=== PATIENT | female | born 1970 | race American Indian/Alaskan Native ===

== ENCOUNTER 2016-10-06 00:58 | Emergency (ER) | payer MEDICARE ==
[2016-10-06 02:03] VITALS: BP 146/85
[2016-10-06 03:20] LABS: Basophils % (Auto) 0.9 % (0.0-1.8); Hematocrit 37.1 % (30.3-42.9); Hemoglobin 12.5 gm/dl (10.1-14.3); Mean Corpuscular HGB Conc 34 % (30-34); Mean Corpuscular Hemoglobin 31 pg (28-32); Mean Corpuscular Volume 92 fl (79-97); Platelet Count 368 K/mm3 (140-440); Red Blood Count 4.01 M/mm3 (3.65-5.03); White Blood Count 8.5 K/mm3 (4.5-11.0)
[2016-10-06 03:27] LABS: INR 0.9 (0.87-1.13)
[2016-10-06 03:28] LABS: Partial Thromboplastin Time 25.1 Sec. (24.2-36.6)
[2016-10-06 03:41] LABS: Alanine Aminotransferase 15 units/L (7-56); Albumin/Globulin Ratio 1.2 %; Alkaline Phosphatase 60 units/L (35-129); Anion Gap 25 mmol/L; BUN/Creatinine Ratio 22.85; Bilirubin,Total 0.2 mg/dL (0.1-1.2); Blood Urea Nitrogen 16 mg/dL (7-17); Calcium 8.4 mg/dL (8.4-10.2); Carbon Dioxide 22 mmol/L (22-30); Chloride 97.8 mmol/L (98-107); Glucose 231 mg/dL (65-100); Sodium 142 mmol/L (137-145); Total Protein 7.3 g/dL (6.3-8.2)
--- NOTE | 2016-10-06 05:10 | Cat Scan Report ---
FINAL REPORT PROCEDURE: CT HEAD/BRAIN WO CON TECHNIQUE: Computerized tomography of the head was performed without contrast material. HISTORY: fall hit head COMPARISON: 04/24/2014 FINDINGS: Skull and scalp: Normal. Paranasal sinuses: Normal. Ventricles and subarachnoid spaces: Normal. Cerebrum: No evidence of hemorrhage, acute infarction or mass . Cerebellum and brainstem: No evidence of hemorrhage, acute infarction or mass. Vasculature: Normal. Comments: None. IMPRESSION: There is no evidence of an acute intracranial process.
--- NOTE | 2016-10-06 07:28 | XRay Report ---
RIGHT FOREARM: History: Pain, foreign body. AP and lateral views of the forearm demonstrate normal mineralization and contours for this patient's age. No destructive changes are noted and the adjacent soft tissues are normal. IMPRESSION: Unremarkable right forearm.
--- NOTE | 2016-10-06 07:28 | XRay Report ---
RIGHT HAND, 3 views: History: Numbness, foreign body The bony architecture is intact. Bony alignment is normal. No soft tissue abnormalities are seen. The joint spaces appear preserved. IMPRESSION: Unremarkable right hand.
--- NOTE | 2016-10-06 07:42 | Emergency Department Report ---
ED Fall HPI - General Chief Complaint: Wound/Laceration Stated Complaint: RT ARM LAC/FALL Time Seen by Provider: 10/06/16 07:37 Source: patient Mode of arrival: Ambulatory - History of Present Illness Initial Comments: 46-year-old female past medical history carpal tunnel syndrome presents with complaint of lacerations to right forearm status post mechanical fall onto glass coffee table last night at approximately 11 PM. Patient states her dog regularly ran in front of her C tripped forward onto an outstretched forearm on some glass coffee table glass cracked she may have hit her head on the tip of table no loss of consciousness was able to stand up immediately states that she saw bleeding in her forearm which is why she came to hospital. On my exam patient is awake alert and oriented 3 not in acute distress reports no nausea or vomiting since incident can follow simple commands and complex commands is fully ambulatory without assistance primarily complaining of pain in her right forearm area denies any alcohol or drug use. As any upper or lower extremity paresthesias denies any neck or back pain did not hit her neck or her back during fall. MD Complaint: fall Onset/Timin -: hour(s) Fall From: standing Fall Witnessed: no Place Fall Occurred: home Loss of Consciousness: none Prolonged Down Time?: no Symptoms Prior to Fall: none Location: head Location - Extremities: Right: Forearm (2 visible lacerations right midforearm about one-inch each) Severity: moderate Severity scale (0 -10): 6 Quality: sharp Context: tripped/slipped Associated Symptoms: denies - Related Data Home Medications Medication Instructions Recorded Confirmed Last Taken Atorvastatin Calcium [Lipitor] 20 mg PO QHS 04/23/14 04/23/14 Unknown Butalbit/Acetamin/Caff/Codeine 1 each PO Q4H 04/23/14 04/23/14 Unknown [Fioricet/Codeine 89-686-46-30] Cyclobenzaprine [Flexeril 10 MG 10 mg PO BID PRN 04/23/14 04/23/14 Unknown TAB] Duloxetine HCl [Cymbalta] 60 mg PO DAILY 04/23/14 04/23/14 Unknown Ferrous Sulfate [Feosol 325 MG tab] 325 mg PO BID 04/23/14 04/23/14 Unknown Gabapentin [Neurontin] 800 mg PO QID 04/23/14 04/23/14 Unknown Losartan [Cozaar] 100 mg PO QDAY 04/23/14 04/23/14 Unknown Meloxicam 15 mg PO QDAY 04/23/14 04/23/14 Unknown Metolazone [Zaroxolyn] 5 mg PO QDAY 04/23/14 04/23/14 Unknown Oxycodone HCl/Acetaminophen 1 each PO Q6H PRN 04/23/14 04/23/14 Unknown [OxyCODONE-Acetaminophen 7.5-325] Potassium Chloride [K-Dur] 10 meq PO QDAY 04/23/14 04/23/14 Unknown Ranitidine HCl [Zantac] 300 mg PO QDAY 04/23/14 04/23/14 Unknown Tizanidine HCl [Zanaflex] 4 mg PO TID PRN 04/23/14 04/23/14 Unknown Topiramate [Topamax TAB] 25 mg PO BID 04/23/14 04/23/14 Unknown cloNIDine [Catapres] 0.2 mg PO BID 04/23/14 04/23/14 Unknown diphenhydrAMINE [Benadryl CAP] 25 mg PO Q8HR PRN 04/23/14 04/23/14 Unknown metFORMIN [Glucophage] 1,000 mg PO BID 04/23/14 04/23/14 Unknown Previous Rx's Medication Instructions Recorded Last Taken Type Magnesium Oxide [Mag-Ox] 400 mg PO BID #10 tablet 07/06/14 Unknown Rx amLODIPine [Norvasc] 5 mg PO DAILY #30 tab 07/06/14 Unknown Rx Acetaminophen/Codeine [Tylenol #3] 1 tab PO Q6H PRN #8 tab 10/06/16 Unknown Rx Cephalexin [Keflex] 500 mg PO BID #14 capsule 10/06/16 Unknown Rx Ibuprofen [Motrin] 600 mg PO Q8H PRN #25 tablet 10/06/16 Unknown Rx Magnesium Oxide [Mag-Ox] 400 mg PO QDAY #30 tablet 10/06/16 Unknown Rx Neomycn/Baci Zn/Pmyx Bs/Pramox 28 gm TP BID #1 oint...g. 10/06/16 Unknown Rx [Triple Antibioti-Pain Rlf Oint] Potassium Chloride [K-Dur] 20 meq PO BID #60 tab 10/06/16 Unknown Rx Allergies Allergy/AdvReac Type Severity Reaction Status Date / Time No Known Allergies Allergy Verified 10/06/16 01:59 ED Review of Systems ROS: Stated complaint: RT ARM LAC/FALL Other details as noted in HPI Constitutional: denies: chills, fever Eyes: denies: eye pain, eye discharge, vision change ENT: denies: ear pain, throat pain Respiratory: denies: cough, shortness of breath, wheezing Cardiovascular: denies: chest pain, palpitations Endocrine: no symptoms reported Gastrointestinal: denies: abdominal pain, nausea, diarrhea Genitourinary: denies: urgency, dysuria, discharge Musculoskeletal: denies: back pain, joint swelling, arthralgia Skin: denies: rash, lesions Neurological: denies: headache, weakness, paresthesias Psychiatric: denies: anxiety, depression Hematological/Lymphatic: denies: easy bleeding, easy bruising ED Past Medical Hx - Past Medical History Previous Medical History?: Yes Hx Hypertension: Yes Hx Diabetes: Yes Additional medical history: Sciatica. Chronic back/knee pain - Surgical History Past Surgical History?: Yes Hx Cholecystectomy: Yes Hx Breast Surgery: Yes (BREAST REDUCTION) Additional Surgical History: R knee surgery. breast reduction - hysterectomy. carpel tunnel repair R side - Social History Smoking Status: Current Every Day Smoker Substance Use Type: Alcohol - Medications Home Medications: Home Medications Medication Instructions Recorded Confirmed Last Taken Type Atorvastatin Calcium [Lipitor] 20 mg PO QHS 04/23/14 04/23/14 Unknown History Butalbit/Acetamin/Caff/Codeine 1 each PO Q4H 04/23/14 04/23/14 Unknown History [Fioricet/Codeine 88-303-53-30] Cyclobenzaprine [Flexeril 10 MG 10 mg PO BID PRN 04/23/14 04/23/14 Unknown History TAB] Duloxetine HCl [Cymbalta] 60 mg PO DAILY 04/23/14 04/23/14 Unknown History Ferrous Sulfate [Feosol 325 MG tab] 325 mg PO BID 04/23/14 04/23/14 Unknown History Gabapentin [Neurontin] 800 mg PO QID 04/23/14 04/23/14 Unknown History Losartan [Cozaar] 100 mg PO QDAY 04/23/14 04/23/14 Unknown History Meloxicam 15 mg PO QDAY 04/23/14 04/23/14 Unknown History Metolazone [Zaroxolyn] 5 mg PO QDAY 04/23/14 04/23/14 Unknown History Oxycodone HCl/Acetaminophen 1 each PO Q6H PRN 04/23/14 04/23/14 Unknown History [OxyCODONE-Acetaminophen 7.5-325] Potassium Chloride [K-Dur] 10 meq PO QDAY 04/23/14 04/23/14 Unknown History Ranitidine HCl [Zantac] 300 mg PO QDAY 04/23/14 04/23/14 Unknown History Tizanidine HCl [Zanaflex] 4 mg PO TID PRN 04/23/14 04/23/14 Unknown History Topiramate [Topamax TAB] 25 mg PO BID 04/23/14 04/23/14 Unknown History cloNIDine [Catapres] 0.2 mg PO BID 04/23/14 04/23/14 Unknown History diphenhydrAMINE [Benadryl CAP] 25 mg PO Q8HR PRN 04/23/14 04/23/14 Unknown History metFORMIN [Glucophage] 1,000 mg PO BID 04/23/14 04/23/14 Unknown History Magnesium Oxide [Mag-Ox] 400 mg PO BID #10 tablet 07/06/14 Unknown Rx amLODIPine [Norvasc] 5 mg PO DAILY #30 tab 07/06/14 Unknown Rx Acetaminophen/Codeine [Tylenol #3] 1 tab PO Q6H PRN #8 tab 10/06/16 Unknown Rx Cephalexin [Keflex] 500 mg PO BID #14 capsule 10/06/16 Unknown Rx Ibuprofen [Motrin] 600 mg PO Q8H PRN #25 tablet 10/06/16 Unknown Rx Magnesium Oxide [Mag-Ox] 400 mg PO QDAY #30 tablet 10/06/16 Unknown Rx Neomycn/Baci Zn/Pmyx Bs/Pramox 28 gm TP BID #1 oint...g. 10/06/16 Unknown Rx [Triple Antibioti-Pain Rlf Oint] Potassium Chloride [K-Dur] 20 meq PO BID #60 tab 10/06/16 Unknown Rx ED Physical Exam - General Limitations: No Limitations General appearance: alert, in no apparent distress - Head Head exam: Present: atraumatic, normocephalic - Eye Eye exam: Present: normal appearance, PERRL, EOMI - ENT ENT exam: Present: mucous membranes moist - Neck Neck exam: Present: normal inspection, full ROM - Respiratory Respiratory exam: Present: normal lung sounds bilaterally. Absent: respiratory distress - Cardiovascular Cardiovascular Exam: Present: regular rate, normal rhythm. Absent: systolic murmur, diastolic murmur, rubs, gallop - GI/Abdominal GI/Abdominal exam: Present: soft, normal bowel sounds - Extremities Exam Extremities exam: Present: normal inspection - Expanded Upper Extremity Exam Right Shoulder Exam: Present: normal inspection, full ROM Upper Arm exam: Present: normal inspection, full ROM Elbow exam: Present: normal inspection, full ROM Forearm Wrist exam: Present: full ROM (patient supination intact elbow flexion and extension fully intact against resistance no wrist drop wrist flexion and extension lateral flexion fully intact against resistance), tenderness, laceration (2 one-inch lacerations right midforearm) Hand Wrist exam: Present: normal inspection, full ROM, other (is no snuffbox tenderness on exam) Neuro motor exam: Present: wrist extension intact, thumb opposition intact, thumb IP flexion intact, thumb adduction intact, fingers 2-5 abduction intact Neurosensory exam: Present: radial nerve intact, ulnar nerve intact, median nerve intact Vascular: Present: normal capillary refill (normal capillary refill all distal fingers hand range of motion finger range of motion fully intact all digits against resistance flexion and extension, lumbricals intact), radial pulse, brachial pulse, ulnar pulse - Back Exam Back exam: Present: normal inspection - Neurological Exam Neurological exam: Present: alert, oriented X3, CN II-XII intact, normal gait - Expanded Neurological Exam Expanded Patient oriented to: Present: person, place, time Cranial nerves: EOM's Intact: Normal Cerebellar function: Finger to Nose: Normal, Heel to [place]: Normal, [place]: Normal Sensory exam: Upper Extremity Light Touch: Normal, Lower Extremity Light Touch: Normal Motor strength exam: RUE: 5, LUE: 5, RLE: 5, LLE: 5 DTR: bicep (R): 3+, bicep (L): 3+, tricep (R): 3+, tricep (L): 3+ Best Eye Response (Brian): (4) open spontaneously Best Motor Response (Brian): (6) obeys commands Best Verbal Response ([place]): (5) oriented Brian Total: 15 - Psychiatric Psychiatric exam: Present: normal affect, normal mood - Skin Skin exam: Present: warm, dry, intact, normal color. Absent: rash ED Course Vital Signs 10/06/16 01:59 Temperature 98.6 F Pulse Rate 113 H Respiratory 18 Rate Blood Pressure 146/85 O2 Sat by Pulse 99 Oximetry ED Medical Decision Making - Lab Data Result diagrams: 10/06/16 03:03 10/06/16 03:03 - Medical Decision Making A/P: Forearm laceration, mechanical fall, mild hypokalemia 1-at CT head, hand and forearm x-ray within normal limits, patient has normal range of motion right upper extremity all joints, right upper extremity neurovascularly intact no snuffbox tenderness on clinical exam 2-sutures placed in right forearm to be removed in 7-10 days, triple antibiotic ointment, acute wound care, Keflex 500 mg twice a day 7 days as it was a penetrating wound with small glass shards 3-motrin 600 when necessary, short course Tylenol 3 4-tdap updated today 5-advised patient to return to the ED for any severe headache lethargy or persistent nausea or vomiting fevers chills pus drainage or erythema at wound site 6- patient has mild hypokalemia and hypomagnesemia we'll replete orally has no EKG changes no chest pain no generalized weakness no presyncopal symptoms whatsoever and no neurovascular or neurological deficits on clinical exam. Will provide oral repletion w/ PO mag oxide and Kdur. I advised pt to f/u with her PMD and have her electrolytes rechecked within the next week. pt agrees with this plan and assures me that she will follow up 7- pt signed out AGAINST MEDICAL ADVICE before we could repeat her magnesium and recheck her vital signs stated that she was in a kearns to leave the hospital and that her ride was waiting for her. I encouraged her to stay as repeating her electrolytes is an important issue but she stated she needed to leave immediately Critical care attestation.: If time is entered above; I have spent that time in minutes in the direct care of this critically ill patient, excluding procedure time. ED Disposition Clinical Impression: Hypokalemia, Hypomagnesemia Fall Qualifiers: Encounter type: initial encounter Qualified Code(s): W19.XXXA - Unspecified fall, initial encounter Forearm laceration Qualifiers: Encounter type: initial encounter Laterality: right Qualified Code(s): S51.811A - Laceration without foreign body of right forearm, initial encounter Disposition: DISCHARGED TO HOME OR SELFCARE Is pt being admited?: No Does the pt Need Aspirin: No Condition: Stable Instructions: Acute Wound Care (ED), Suture Care (ED), Laceration (ED), Hypokalemia (ED), Diphtheria/Tetanus Vaccine (Injection) Additional Instructions: Patient to have sutures removed in 7-10 days and ER urgent care or primary care office Prescriptions: Acetaminophen/Codeine [Tylenol #3] 1 tab PO Q6H PRN #8 tab PRN Reason: Pain Cephalexin [Keflex] 500 mg PO BID #14 capsule Ibuprofen [Motrin] 600 mg PO Q8H PRN #25 tablet PRN Reason: Pain Magnesium Oxide [Mag-Ox] 400 mg PO QDAY #30 tablet Neomycn/Baci Zn/Pmyx Bs/Pramox [Triple Antibioti-Pain Rlf Oint] 28 gm TP BID #1 oint...g. Potassium Chloride [K-Dur] 20 meq PO BID #60 tab Referrals: RACQUEL WEATHERS MD [Staff Physician] - 3-5 Days Forms: Work/School Release Form(ED) Time of Disposition: 09:08
[2016-10-06] MEDS ORDERED: K-DUR PO ONE (07:46)
[2016-10-06] MEDS ORDERED: ZOFRAN ODT PO ONE (07:48)
[2016-10-06] MEDS ORDERED: NORCO 5/325 PO ONE (07:48)
[2016-10-06] MEDS ORDERED: BOOSTRIX IM ONE (07:48)
[2016-10-06] MEDS ORDERED: TRIPLE ANTIBIOTIC TP ONE (07:56)
[2016-10-06] MEDS ORDERED: XYLOCAINE 1%/ EPI 1:100,000 INFILTRATI NR (08:00)
[2016-10-06 08:11] LABS: Creatine Kinase 190 units/L (30-135)
[2016-10-06] MEDS ORDERED: XYLOCAINE 1% MPF 5 mL ONE (08:26)
[2016-10-06] MEDS ORDERED: MAG-OX PO ONE (09:30)
== END 2016-10-06 09:31 | disposition left against medical advice (07) ==
LOC: ED 00:58
DX: S51.811A Laceration without foreign body of right forearm, initial encounter (principal); E87.6 Hypokalemia; E83.42 Hypomagnesemia; I10 Essential (primary) hypertension; E11.9 Type 2 diabetes mellitus without complications; G89.29 Other chronic pain; F17.200 Nicotine dependence, unspecified, uncomplicated; W19.XXXA Unspecified fall, initial encounter; Y93.89 Activity, other specified; Y99.8 Other external cause status; Y92.009 Unspecified place in unspecified non-institutional (private) residence as the place of occurrence of the external cause
CPT/HCPCS: 36415; 70450; 80053; 82550; 83735; 84484; 85025; 85610; 85730; 90471; 90715; 93005; 93010; A6250; Q0162

== ENCOUNTER 2017-07-13 17:11 | Inpatient (IN) | payer MEDICARE ==
[2017-07-13 18:19] LABS: Bilirubin,Urine NEG (Negative); Blood,Urine SM (Negative); Color,Urine Yellow (Yellow); Nitrite,Urine NEG (Negative); Urobilinogen,Urine < 2.0 mg/dL (<2.0)
[2017-07-13 18:22] LABS: Protein,Urine >500 mg/dL (Negative)
[2017-07-13 18:41] LABS: Basophils # (Auto) 0.1 K/mm3 (0.0-0.1); Basophils % (Auto) 1.1 % (0.0-1.8); Eosinophils # (Auto) 0.2 K/mm3 (0.0-0.4); Hematocrit 41.2 % (30.3-42.9); Hemoglobin 14.3 gm/dl (10.1-14.3); Lymphocytes # (Auto) 2.9 K/mm3 (1.2-5.4); Lymphocytes % (Auto) 44.7 % (13.4-35.0); Mean Corpuscular HGB Conc 35 % (30-34); Mean Corpuscular Hemoglobin 33 pg (28-32); Mean Corpuscular Volume 94 fl (79-97); Monocytes # (Auto) 0.5 K/mm3 (0.0-0.8); Monocytes % (Auto) 8.3 % (0.0-7.3); Platelet Count 371 K/mm3 (140-440); Red Blood Count 4.38 M/mm3 (3.65-5.03); Red Cell Distribution Width 15.6 % (13.2-15.2)
[2017-07-13 18:49] LABS: Alanine Aminotransferase 17 units/L (7-56); Albumin 4.1 g/dL (3.9-5); BUN/Creatinine Ratio 18; Blood Urea Nitrogen 14 mg/dL (7-17); Hemolysis Index 10
[2017-07-13] MEDS ORDERED: CATAPRES PO ONE (19:51)
--- NOTE | 2017-07-13 21:09 | Emergency Department Report ---
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 THE PAIN WAS INTERMITTENT BUT NOW FOR ONE WEEK HAS BECOME CONSTANT. PAIN BEGINS IN HER LEFT CALF AND GOES UP TO THE LEFT POSTERIOR THIGH AND THEN TO THE LEFT LOWER QUADRANT. IT IS NOT ASSOCIATED WITH N/V/F BUT EITH CHILLS. SHE HAS A H/O RIGHT ANKLE DVT AFTER RIGHT KNEEE SURGERY. PAST MEDICAL ISSUE INCLUDES DVT,HTN,DM TYPE II, AN DRIGHT KNEE SURGERY CURRENT HR IS 127 AND SAT 95%. HER DR IS DR CHINYERE BARGER MD Complaint: extremity pain -: month(s) (2) Location: left, lower extremity History of Same: No -: Yes arthralgia Severity scale (0 -10): 10 Quality: stabbing, aching Consistency: constant Improves with: nothing Worsens with: weight bearing, walking Associated Symptoms: denies other symptoms - Related Data Home Medications Medication Instructions Recorded Confirmed Last Taken Atorvastatin Calcium [Lipitor] 20 mg PO QHS 04/23/14 04/23/14 Unknown Butalbit/Acetamin/Caff/Codeine 1 each PO Q4H 04/23/14 04/23/14 Unknown [Fioricet/Codeine 94-392-07-30] Cyclobenzaprine [Flexeril 10 MG 10 mg PO BID PRN 04/23/14 04/23/14 Unknown TAB] Duloxetine HCl [Cymbalta] 60 mg PO DAILY 04/23/14 04/23/14 Unknown Ferrous Sulfate [Feosol 325 MG tab] 325 mg PO BID 04/23/14 04/23/14 Unknown Gabapentin [Neurontin] 800 mg PO QID 04/23/14 04/23/14 Unknown Losartan [Cozaar] 100 mg PO QDAY 04/23/14 04/23/14 Unknown Meloxicam 15 mg PO QDAY 04/23/14 04/23/14 Unknown Metolazone [Zaroxolyn] 5 mg PO QDAY 04/23/14 04/23/14 Unknown Oxycodone HCl/Acetaminophen 1 each PO Q6H PRN 04/23/14 04/23/14 Unknown [OxyCODONE-Acetaminophen 7.5-325] Potassium Chloride [K-Dur] 10 meq PO QDAY 04/23/14 04/23/14 Unknown Ranitidine HCl [Zantac] 300 mg PO QDAY 04/23/14 04/23/14 Unknown Tizanidine HCl [Zanaflex] 4 mg PO TID PRN 04/23/14 04/23/14 Unknown Topiramate [Topamax TAB] 25 mg PO BID 04/23/14 04/23/14 Unknown cloNIDine [Catapres] 0.2 mg PO BID 04/23/14 04/23/14 Unknown diphenhydrAMINE [Benadryl CAP] 25 mg PO Q8HR PRN 04/23/14 04/23/14 Unknown metFORMIN [Glucophage] 1,000 mg PO BID 04/23/14 04/23/14 Unknown Previous Rx's Medication Instructions Recorded Last Taken Type Magnesium Oxide [Mag-Ox] 400 mg PO BID #10 tablet 07/06/14 Unknown Rx amLODIPine [Norvasc] 5 mg PO DAILY #30 tab 07/06/14 Unknown Rx Acetaminophen/Codeine [Tylenol #3] 1 tab PO Q6H PRN #8 tab 10/06/16 Unknown Rx Cephalexin [Keflex] 500 mg PO BID #14 capsule 10/06/16 Unknown Rx Ibuprofen [Motrin] 600 mg PO Q8H PRN #25 tablet 10/06/16 Unknown Rx Magnesium Oxide [Mag-Ox] 400 mg PO QDAY #30 tablet 10/06/16 Unknown Rx Neomycn/Bacitrc/Polymyx/Pramox 28 gm TP BID #1 oint...g. 10/06/16 Unknown Rx [Triple Antibioti-Pain Rlf Oint] Potassium Chloride [K-Dur] 20 meq PO BID #60 tab 10/06/16 Unknown Rx Naproxen [Naprosyn] 500 mg PO BID #30 tablet 07/14/17 Unknown Rx oxyCODONE /ACETAMINOPHEN [Percocet 2 tab PO Q6HR PRN #20 tablet 07/14/17 Unknown Rx 5/325] Allergies Allergy/AdvReac Type Severity Reaction Status Date / Time No Known Allergies Allergy Verified 10/06/16 01:59 ED Review of Systems ROS: Stated complaint: LEFT FLANK PAIN Other details as noted in HPI Constitutional: denies: chills, fever Eyes: denies: eye pain, eye discharge, vision change ENT: denies: ear pain, throat pain Respiratory: denies: cough, shortness of breath, wheezing Cardiovascular: denies: chest pain, palpitations Endocrine: no symptoms reported Gastrointestinal: denies: abdominal pain, nausea, diarrhea Genitourinary: denies: urgency, dysuria, discharge Musculoskeletal: denies: back pain, joint swelling Skin: denies: rash, lesions Neurological: denies: headache, weakness, paresthesias Psychiatric: denies: anxiety, depression Hematological/Lymphatic: denies: easy bleeding, easy bruising ED Past Medical Hx - Past Medical History Hx Hypertension: Yes Hx Diabetes: Yes Additional medical history: Sciatica. Chronic back/knee pain - Surgical History Hx Cholecystectomy: Yes Hx Breast Surgery: Yes (BREAST REDUCTION) Additional Surgical History: R knee surgery. breast reduction - hysterectomy. carpel tunnel repair R side - Social History Smoking Status: Current Every Day Smoker Substance Use Type: Alcohol - Medications Home Medications: Home Medications Medication Instructions Recorded Confirmed Last Taken Type Atorvastatin Calcium [Lipitor] 20 mg PO QHS 04/23/14 04/23/14 Unknown History Butalbit/Acetamin/Caff/Codeine 1 each PO Q4H 04/23/14 04/23/14 Unknown History [Fioricet/Codeine [id number]] Cyclobenzaprine [Flexeril 10 MG 10 mg PO BID PRN 04/23/14 04/23/14 Unknown History TAB] Duloxetine HCl [Cymbalta] 60 mg PO DAILY 04/23/14 04/23/14 Unknown History Ferrous Sulfate [Feosol 325 MG tab] 325 mg PO BID 04/23/14 04/23/14 Unknown History Gabapentin [Neurontin] 800 mg PO QID 04/23/14 04/23/14 Unknown History Losartan [Cozaar] 100 mg PO QDAY 04/23/14 04/23/14 Unknown History Meloxicam 15 mg PO QDAY 04/23/14 04/23/14 Unknown History Metolazone [Zaroxolyn] 5 mg PO QDAY 04/23/14 04/23/14 Unknown History Oxycodone HCl/Acetaminophen 1 each PO Q6H PRN 04/23/14 04/23/14 Unknown History [OxyCODONE-Acetaminophen 7.5-325] Potassium Chloride [K-Dur] 10 meq PO QDAY 04/23/14 04/23/14 Unknown History Ranitidine HCl [Zantac] 300 mg PO QDAY 04/23/14 04/23/14 Unknown History Tizanidine HCl [Zanaflex] 4 mg PO TID PRN 04/23/14 04/23/14 Unknown History Topiramate [Topamax TAB] 25 mg PO BID 04/23/14 04/23/14 Unknown History cloNIDine [Catapres] 0.2 mg PO BID 04/23/14 04/23/14 Unknown History diphenhydrAMINE [Benadryl CAP] 25 mg PO Q8HR PRN 04/23/14 04/23/14 Unknown History metFORMIN [Glucophage] 1,000 mg PO BID 04/23/14 04/23/14 Unknown History Magnesium Oxide [Mag-Ox] 400 mg PO BID #10 tablet 07/06/14 Unknown Rx amLODIPine [Norvasc] 5 mg PO DAILY #30 tab 07/06/14 Unknown Rx Acetaminophen/Codeine [Tylenol #3] 1 tab PO Q6H PRN #8 tab 10/06/16 Unknown Rx Cephalexin [Keflex] 500 mg PO BID #14 capsule 10/06/16 Unknown Rx Ibuprofen [Motrin] 600 mg PO Q8H PRN #25 tablet 10/06/16 Unknown Rx Magnesium Oxide [Mag-Ox] 400 mg PO QDAY #30 tablet 10/06/16 Unknown Rx Neomycn/Bacitrc/Polymyx/Pramox 28 gm TP BID #1 oint...g. 10/06/16 Unknown Rx [Triple Antibioti-Pain Rlf Oint] Potassium Chloride [K-Dur] 20 meq PO BID #60 tab 10/06/16 Unknown Rx Naproxen [Naprosyn] 500 mg PO BID #30 tablet 07/14/17 Unknown Rx oxyCODONE /ACETAMINOPHEN [Percocet 2 tab PO Q6HR PRN #20 tablet 07/14/17 Unknown Rx 5/325] ED Physical Exam - General Limitations: No Limitations General appearance: alert, in no apparent distress - Head Head exam: Present: atraumatic, normocephalic - Eye Eye exam: Present: normal appearance, EOMI - ENT ENT exam: Present: mucous membranes moist - Neck Neck exam: Present: normal inspection, full ROM - Respiratory Respiratory exam: Present: normal lung sounds bilaterally. Absent: respiratory distress, wheezes, rales - Cardiovascular Cardiovascular Exam: Present: regular rate, normal rhythm. Absent: systolic murmur, diastolic murmur, rubs, gallop - GI/Abdominal GI/Abdominal exam: Present: soft, tenderness (LEFT LOWER QUADRANT , LOWER MID QUADRANT), normal bowel sounds. Absent: guarding, rebound, rigid - Rectal Rectal exam: Present: deferred - Extremities Exam Extremities exam: Present: normal inspection, full ROM, tenderness (POSTERIOR CALF IN POPLITEAL DISTRIBUTION RADIATING TO LEFT ABDOMEN) - Back Exam Back exam: Present: normal inspection, full ROM. Absent: tenderness - Neurological Exam Neurological exam: Present: alert, oriented X3, CN II-XII intact - Psychiatric Psychiatric exam: Present: normal affect, normal mood - Skin Skin exam: Present: warm, dry, intact, normal color. Absent: rash ED Course Vital Signs 07/13/17 07/13/17 07/13/17 17:48 19:30 19:41 Temperature 98.6 F Pulse Rate 102 H 110 H Respiratory 18 18 19 Rate Blood Pressure 213/133 218/130 Blood Pressure [Left] O2 Sat by Pulse 100 95 95 Oximetry 07/13/17 07/13/17 07/13/17 20:03 21:00 23:24 Temperature Pulse Rate 111 H 116 H 112 H Respiratory 14 Rate Blood Pressure 218/130 193/113 Blood Pressure 197/116 [Left] O2 Sat by Pulse 95 Oximetry - Reevaluation(s) Reevaluation #1: 07/14/17 00:50 PT IS STILL TACHYCARDIA AND HYPERTENSIVE SO I WILL DO LABETALOL, THYROID STUDIES,, EKG, DRUG SCREEN. ED Medical Decision Making - Lab Data Result diagrams: 07/13/17 18:05 07/13/17 18:05 - EKG Data EKG shows normal: sinus rhythm, axis, intervals Rate: tachycardia - EKG Data Interpretation: LVH, other (Q IN V1-V2,III) - Radiology Data Radiology results: report reviewed (CTA CHEST:NEGATIVE CT ABD/PELVIS: HEPATOMEGALY ,DJD OF SPINE CT LEFT LOWER EXTREMITY: VARICOSE VEINS IN SOFT TISSUE,DJD OF KNEE) Critical care attestation.: If time is entered above; I have spent that time in minutes in the direct care of this critically ill patient, excluding procedure time. ED Disposition Clinical Impression: Varicose vein of leg, Tachycardia, Hypertension, malignant, Hyperglycemia due to type 2 diabetes mellitus Leg pain, posterior Qualifiers: Laterality: left Qualified Code(s): M79.605 - Pain in left leg Abdominal pain Qualifiers: Abdominal location: lower abdomen, unspecified Qualified Code(s): R10.30 - Lower abdominal pain, unspecified DJD (degenerative joint disease) Qualifiers: Osteoarthritis location: spine Spinal region: unspecified Spinal osteoarthritis complication: unspecified spinal osteoarthritis Qualified Code(s) : M47.9 - Spondylosis, unspecified Disposition: - TO HOME OR SELFCARE Is pt being admited?: No Does the pt Need Aspirin: No Condition: Stable Instructions: Abdominal Pain (ED), Degenerative Disc Disease (ED), Varicose Veins (ED), Acute Abdominal Pain (ED), Hypokalemia (ED), Hypertension (ED), Diabetes Mellitus Type 2 in Adults (ED) Prescriptions: Naproxen [Naprosyn] 500 mg PO BID #30 tablet oxyCODONE /ACETAMINOPHEN [Percocet 5/325] 2 tab PO Q6HR PRN #20 tablet PRN Reason: Pain Referrals: CHINYERE BARGER MD [Primary Care Provider] - 3-5 Days Time of Disposition: 02:14 (DR HANSON WAS INTHE ED, CASE REVIEWED AND SHE WILL ADMIT THE PT TO HER SERVICE)
[2017-07-13] MEDS ORDERED: ZOFRAN IV ONE (21:12)
[2017-07-13] MEDS ORDERED: MORPHINE IV ONE (21:12)
[2017-07-13] MEDS ORDERED: NACL 0.9% 1000 ML 1,000 ML IV ONE (21:13)
[2017-07-13] MEDS ORDERED: NACL ONE (21:49)
[2017-07-13 22:30] LABS: Bacteria,Urine 1+ /HPF (Negative); Bilirubin,Urine NEG (Negative); Blood,Urine SM (Negative); Color,Urine Straw (Yellow); Nitrite,Urine NEG (Negative); Urobilinogen,Urine < 2.0 mg/dL (<2.0); WBC,Urine < 1.0 /HPF (0.0-6.0)
[2017-07-13 22:31] LABS: Protein,Urine >500 mg/dL (Negative)
--- NOTE | 2017-07-13 23:23 | Cat Scan Report ---
FINAL REPORT PROCEDURE: CT LOWER EXTREMITY LT W CON TECHNIQUE: Computerized axial tomography of the LEFT femur was performed without contrast. HISTORY: abd pain,left leg pain COMPARISON: No prior studies are available for comparison. FINDINGS: Bony structures including marrow spaces: Normal. Neurovascular structures: Normal. Soft tissues: Normal musculature. There is skin thickening with multiple prominent vessels consistent with varicosities.. Joint space: Degenerative change of the knee. Joint space of the hip is well preserved. IMPRESSION: No fracture. Mild spurring at the knee Varicose veins in the soft tissues
--- NOTE | 2017-07-13 23:36 | Cat Scan Report ---
FINAL REPORT PROCEDURE: CT ANGIO CHEST TECHNIQUE: Computerized tomographic angiography of the chest was performed after the IV injection of iodinated nonionic contrast including image processing. The image data was postprocessed using 2-dimensional multiplanar reformatted (MPR) and 3-dimensional (MIP and/or volume rendered) techniques. HISTORY: TACHYCARDIA, ELEVATED DIMER,ABD,LEG PAIN COMPARISON: No prior studies are available for comparison. FINDINGS: Heart and pericardium: Normal. Thoracic aorta: Normal. Pulmonary vasculature: Normal. Suboptimal enhancement. No embolism seen. Lymph nodes: No enlarged thoracic lymph nodes. Lungs: Right lower lung atelectasis with elevation of the right hemidiaphragm. Pleural space: No effusion, thickening, or pneumothorax. Musculoskeletal structures: Degenerative change of the spine.. Upper abdominal structures: No significant abnormality. IMPRESSION: No embolism seen. No aneurysm or dissection. Right lower lung atelectasis.
--- NOTE | 2017-07-13 23:41 | Cat Scan Report ---
FINAL REPORT PROCEDURE: CT ABDOMEN PELVIS W CON TECHNIQUE: Computerized axial tomography of the abdomen and pelvis was performed after the IV injection of iodinated nonionic contrast. HISTORY: abd pain,left leg pain COMPARISON: No prior studies are available for comparison. FINDINGS: Visualized lower thorax: No significant abnormality. Liver: Diffuse enlargement. No dominant mass or biliary dilatation. Spleen: Normal size and attenuation. Gallbladder and biliary system: Cholecystectomy clips. Pancreas: Normal. Adrenals: Right adrenal adenoma. Kidneys: Normal. GI tract: Normal. No dilated loops of bowel. Lymph nodes and mesentery: Normal. Vasculature: Normal. Bladder: Normal. Reproductive organs: Hysterectomy. Peritoneum: No free fluid. Musculoskeletal structures: Degenerative change. Other: None. IMPRESSION: Hepatomegaly. No obstruction.
[2017-07-13] MEDS ORDERED: TORADOL IV ONE (23:53)
--- NOTE | 2017-07-14 00:15 | XRay Report ---
FINAL REPORT EXAM: XR ABD SERIES W CXR 1V HISTORY: abd pain COMPARISON: CT of the chest and abdomen from today. FINDINGS:: Single frontal view of the chest demonstrates heart to be normal in size. Shallow inspiration. Mild linear atelectasis at the right lung base.. No pneumothorax. Supine and upright AP views of the abdomen were obtained. No gross free air. Gas scattered within non dilated bowl loops. No gross pathologic calcifications. Bony structures are grossly intact. Surgical clips right upper quadrant. IMPRESSION:: Shallow inspiration. Mild linear atelectasis at the right lung base. Nonobstructive bowel gas pattern.
[2017-07-14] MEDS ORDERED: ZOFRAN IV ONE (00:28)
[2017-07-14] MEDS ORDERED: K-DUR PO ONE (00:28)
[2017-07-14] MEDS ORDERED: NORMODYNE IV ONE (00:49)
[2017-07-14 01:40] LABS: Free T4 (Free Thyroxine) 1.3 ng/dL (0.76-1.46)
[2017-07-14] MEDS ORDERED: APRESOLINE IV PRN ×2 (03:55→09:43)
[2017-07-14] MEDS ORDERED: DULCOLAX PR PRN (03:55)
[2017-07-14] MEDS ORDERED: D50W (25GM) Syringe IV PRN ×2 (03:55→04:55)
[2017-07-14] MEDS ORDERED: MILK OF MAGNESIA PO PRN (03:55)
[2017-07-14] MEDS ORDERED: ZOFRAN IV PRN (03:55)
[2017-07-14] MEDS ORDERED: TYLENOL PO PRN (03:55)
--- NOTE | 2017-07-14 04:32 | History and Physical Report ---
History of Present Illness Date of examination: 07/14/17 Date of admission: 07/14/17 03:55 History of present illness: 47-year-old woman with a history of hypertension, diabetes, sciatica comes to emergency room with complaints of left thigh pain radiated to the left groin and upper buttock described as a spasm-like effect, intermediate every 30 minutes, intensity 9/10, relief at her home medications. Review Of Systems: Constitutional: no weight loss Ears, eyes, nose, mouth and throat: no nasal congestion, no nasal discharge, no sinus pressure, blurry vision, diplopia Neck: No neck pain or rigidity. Cardiovascular: No chest pain, palpitations Respiratory: No shortness of breath, cough Gastrointestinal: No abdominal pain, hematochezia Genitourinary : no dysuria, frequency , hematuria Musculoskeletal: no muscle ache Integumentary: no rash, no pruritis Neurological: no parathesias, focal weakness Endocrine: no cold or heat intolerance, no polyuria or polydipsia Hematologic/Lymphatic: no easy bruising, no easy bleeding, no gland swelling Allergic/Immunologic: no urticaria, no angioedema. PAST MEDICAL HISTORY:hypertension, diabetes, sciatica PAST SURGICAL HISTORY: Cholecystectomy, hysterectomy, hernia repair, , left knee, breast reduction FAMILY HISTORY: Hypertension SOCIAL HISTORY: Smokes 7 cigarettes a day, social alcohol, no drugs Medications and Allergies Allergies Allergy/AdvReac Type Severity Reaction Status Date / Time No Known Allergies Allergy Verified 10/06/16 01:59 Home Medications Medication Instructions Recorded Confirmed Last Taken Type Atorvastatin Calcium [Lipitor] 20 mg PO QHS 04/23/14 07/14/17 Unknown History Butalbit/Acetamin/Caff/Codeine 1 each PO Q4H 04/23/14 07/14/17 Unknown History [Fioricet/Codeine [id number]] Cyclobenzaprine [Flexeril 10 MG 10 mg PO BID PRN 04/23/14 07/14/17 Unknown History TAB] Duloxetine HCl [Cymbalta] 60 mg PO DAILY 04/23/14 07/14/17 Unknown History Gabapentin [Neurontin] 800 mg PO QID 04/23/14 07/14/17 Unknown History Losartan [Cozaar] 100 mg PO QDAY 04/23/14 07/14/17 Unknown History Oxycodone HCl/Acetaminophen 1 each PO Q6H PRN 04/23/14 07/14/17 Unknown History [OxyCODONE-Acetaminophen 7.5-325] Ranitidine HCl [Zantac] 300 mg PO QDAY 04/23/14 07/14/17 Unknown History Tizanidine HCl [Zanaflex] 4 mg PO TID PRN 04/23/14 07/14/17 Unknown History cloNIDine [Catapres] 0.2 mg PO BID 04/23/14 07/14/17 Unknown History diphenhydrAMINE [Benadryl CAP] 25 mg PO Q8HR PRN 04/23/14 07/14/17 Unknown History metFORMIN [Glucophage] 1,000 mg PO BID 04/23/14 07/14/17 Unknown History amLODIPine [Norvasc] 5 mg PO DAILY #30 tab 07/06/14 07/14/17 Unknown Rx Acetaminophen/Codeine [Tylenol #3] 1 tab PO Q6H PRN #8 tab 10/06/16 07/14/17 Unknown Rx Ibuprofen [Motrin] 600 mg PO Q8H PRN #25 tablet 10/06/16 07/14/17 Unknown Rx Furosemide [Lasix] 20 mg PO DAILY 07/14/17 07/14/17 Unknown History Insulin Glargine,Hum.rec.anlog 60 unit SQ QHS 07/14/17 07/14/17 Unknown History [Lantus] Naproxen [Naprosyn] 500 mg PO BID #30 tablet 07/14/17 Unknown Rx oxyCODONE /ACETAMINOPHEN [Percocet 2 tab PO Q6HR PRN #20 tablet 07/14/17 Unknown Rx 5/325] Active Meds: Active Medications Acetaminophen (Tylenol) 650 mg PO Q4H PRN PRN Reason: Pain MILD(1-3)/Fever >100.5/IQBAL Amlodipine Besylate (Norvasc) 5 mg PO DAILY KELSIE Atorvastatin Calcium (Lipitor) 20 mg PO QHS KELSIE Bisacodyl (Dulcolax) 10 mg SD QDAY PRN PRN Reason: Constipation unrelieved by MOM Clonidine HCl (Catapres) 0.2 mg PO BID KELSIE Dextrose (D50w (25gm) Syringe) 50 ml IV PRN PRN PRN Reason: Hypoglycemia Duloxetine HCl (Cymbalta) 60 mg PO DAILY KELSIE Enoxaparin Sodium (Lovenox) 40 mg SUB-Q QDAY KELSIE Ferrous Sulfate (Feosol) 325 mg PO BID KELSIE Gabapentin (Neurontin) 800 mg PO QID KELSIE Hydralazine HCl (Apresoline) 5 mg IV Q6H PRN PRN Reason: Hypertension Magnesium Hydroxide (Milk Of Magnesia) 30 ml PO Q4H PRN PRN Reason: Constipation Morphine Sulfate (Morphine) 2 mg IV Q4H PRN PRN Reason: Pain, Moderate (4-6) Ondansetron HCl (Zofran) 4 mg IV Q8H PRN PRN Reason: N/V unrelieved by Reglan Exam - Physical Exam Narrative exam: Gen. appearance: Patient lying in bed in no acute distress HEENT: Normocephalic/atraumatic, pupils equal round reactive to light, extra occular movement intact, no scleral icterus, no JVD or thyromegaly or nodule, neck is supple, mucous membrane moist, no erythema or exudate Heart: S1-S2, regular rate and rhythm Lungs: Clear to auscultation bilateral breathing comfortable Abdomen: Positive bowel sounds, nontender, nondistended, no organomegaly Extremities: No edema, cyanosis, clubbing Neuro:: Oriented 3 , cranial nerves II-12 intact, speech, motor intact Skin: No rash, nodules, warm dry - Constitutional Vitals: Temp Pulse Resp BP Pulse Ox 98.6 F 101 H 16 166/106 97 07/13/17 17:48 07/14/17 03:00 07/14/17 01:00 07/14/17 03:00 07/14/17 03:00 Results - Labs CBC & Chem 7: 07/13/17 18:05 07/13/17 18:05 Labs: Abnormal lab results 07/13/17 07/13/17 07/13/17 Range/Units 18:05 18:05 18:08 MCH 33 H (28-32) pg MCHC 35 H (30-34) % RDW 15.6 H (13.2-15.2) % Lymph % (Auto) 44.7 H (13.4-35.0) % [place] % (Auto) 8.3 H (0.0-7.3) % D-Dimer 1346.03 H (0-234) ng/mlDDU Potassium 3.1 L (3.6-5.0) mmol/L Chloride 96.5 L (98-107) mmol/L Glucose 210 H (65-100) mg/dL - Imaging and Cardiology CT scan - abdomen: pending CT scan - chest: pending CT scan - pelvis: pending Assessment and Plan CT lower extremity reviewed Assessment Intractable pain Hypertension uncontrolled malignant Diabetes type 2 Plan Admit to medicine Start IV morphine, IV hydralazine Continue appropriate outpatient medications DVT prophylaxis
[2017-07-14] MEDS: MORPHINE IV PRN ×4 (06:08→21:47)
[2017-07-14] MEDS: NOVOLOG SUB-Q SCH ×4 (07:30→22:42)
[2017-07-14] MEDS: CYMBALTA PO SCH (09:25)
[2017-07-14] MEDS: NORVASC PO SCH (09:26)
[2017-07-14] MEDS: FEOSOL PO SCH ×2 (09:26→21:47)
[2017-07-14] MEDS: NEURONTIN PO SCH ×4 (09:26→21:47)
[2017-07-14] MEDS: CATAPRES PO SCH ×2 (09:26→21:47)
[2017-07-14] MEDS: LOVENOX SUB-Q SCH (09:26)
--- NOTE | 2017-07-14 09:35 | Progress Note ---
Assessment and Plan Assessment and plan: 47-year-old woman with a history of hypertension, diabetes, sciatica comes to emergency room with complaints of left thigh pain radiated to the left groin and upper buttock described as a spasm-like effect, intermediate every 30 minutes, intensity 9/10, relief at her home medications. Acute pain due to sciatica We'll make some changes to her medications, change from gabapentin to Lyrica, and baclofen. Increase pain medications. PT consults Left lower extremity swelling Likely due to venous insufficiency, obtain Dopplers to rule out DVT Diabetes type 2 Sliding scale insulin Hypertensive urgency Optimize blood pressure medications Hypokalemia Replete by mouth History Interval history: She is complaining of pain that comes down from her left buttock and radiates down her left thigh and swelling in her left lower extremity Review of systems Constitutional: No fevers, no malaise, no joint pains CVS: No chest pain, no orthopnea, no dyspnea on exertion, no pedal edema GI: No abdominal pain, no diarrhea, no vomiting, no constipation Respiratory: No shortness of breath, no wheezing, no coughing Hospitalist Physical - Physical exam Narrative exam: General.: Appears well, no distress, nontoxic HEENT: Moist mucous membranes, extraocular muscles intact, no lymphadenopathy Neck: supple Cardiac: S1-S2 heard Lungs: clear to auscultation bilaterally Abdomen: soft , nontender, nondistended, bowel sounds positive Extremities: Left lower extremity shows varicosities and pitting edema Skin: no rash or lesions Neurologic: no gross focal deficits Psych: appropriate behavior, appropriate mood, corporative, judgment intact - Constitutional Vitals: Temp Pulse Resp BP Pulse Ox 98.5 F 107 H 20 191/107 93 07/14/17 08:29 07/14/17 08:29 07/14/17 08:29 07/14/17 08:29 07/14/17 08:29 Results - Labs CBC & Chem 7: 07/15/17 03:46 07/15/17 03:46 Labs: Laboratory Last Values WBC 6.6 K/mm3 (4.5-11.0) 07/13/17 18:05 RBC 4.38 M/mm3 (3.65-5.03) 07/13/17 18:05 Hgb 14.3 gm/dl (10.1-14.3) 07/13/17 18:05 Hct 41.2 % (30.3-42.9) 07/13/17 18:05 MCV 94 fl (79-97) 07/13/17 18:05 MCH 33 pg (28-32) H 07/13/17 18:05 MCHC 35 % (30-34) H 07/13/17 18:05 RDW 15.6 % (13.2-15.2) H 07/13/17 18:05 Plt Count 371 K/mm3 (140-440) 07/13/17 18:05 Lymph % (Auto) 44.7 % (13.4-35.0) H 07/13/17 18:05 [place] % (Auto) 8.3 % (0.0-7.3) H 07/13/17 18:05 Eos % (Auto) 3.0 % (0.0-4.3) 07/13/17 18:05 Baso % (Auto) 1.1 % (0.0-1.8) 07/13/17 18:05 Lymph # 2.9 K/mm3 (1.2-5.4) 07/13/17 18:05 [place] # 0.5 K/mm3 (0.0-0.8) 07/13/17 18:05 Eos # 0.2 K/mm3 (0.0-0.4) 07/13/17 18:05 Baso # 0.1 K/mm3 (0.0-0.1) 07/13/17 18:05 Seg Neutrophils % 42.9 % (40.0-70.0) 07/13/17 18:05 Seg Neutrophils # 2.8 K/mm3 (1.8-7.7) 07/13/17 18:05 D-Dimer 1346.03 ng/mlDDU (0-234) H 07/13/17 18:08 Sodium 145 mmol/L (137-145) 07/13/17 18:05 Potassium 3.1 mmol/L (3.6-5.0) L 07/13/17 18:05 Chloride 96.5 mmol/L (98-107) L 07/13/17 18:05 Carbon Dioxide 30 mmol/L (22-30) 07/13/17 18:05 Anion Gap 22 mmol/L 07/13/17 18:05 BUN 14 mg/dL (7-17) 07/13/17 18:05 Creatinine 0.8 mg/dL (0.7-1.2) 07/13/17 18:05 Estimated GFR > 60 ml/min 07/13/17 18:05 BUN/Creatinine Ratio 18 % 07/13/17 18:05 Glucose 210 mg/dL (65-100) H 07/13/17 18:05 POC Glucose 115 (70-105) H 07/14/17 07:06 Calcium 9.0 mg/dL (8.4-10.2) 07/13/17 18:05 Total Bilirubin 0.20 mg/dL (0.1-1.2) 07/13/17 18:05 AST 22 units/L (5-40) 07/13/17 18:05 ALT 17 units/L (7-56) 07/13/17 18:05 Alkaline Phosphatase 72 units/L (35-129) 07/13/17 18:05 NT-Pro-B Natriuret Pep 47.06 pg/mL (0-450) 07/14/17 01:00 Total Protein 6.9 g/dL (6.3-8.2) 07/13/17 18:05 Albumin 4.1 g/dL (3.9-5) 07/13/17 18:05 Albumin/Globulin Ratio 1.5 % 07/13/17 18:05 TSH 0.912 mlU/mL (0.270-4.200) 07/14/17 01:00 Free T4 1.30 ng/dL (0.76-1.46) 07/14/17 01:00 Urine Color Straw (Yellow) 07/13/17 22:10 Urine Turbidity Clear (Clear) 07/13/17 22:10 Urine pH 7.0 (5.0-7.0) 07/13/17 22:10 Ur Specific [place] 1.009 (1.003-1.030) 07/13/17 22:10 Urine Protein >500 mg/dL (Negative) 07/13/17 22:10 Urine Glucose (UA) 50 mg/dL (Negative) 07/13/17 22:10 Urine Ketones Tr mg/dL (Negative) 07/13/17 22:10 Urine Blood Sm (Negative) 07/13/17 22:10 Urine Nitrite Neg (Negative) 07/13/17 22:10 Urine Bilirubin Neg (Negative) 07/13/17 22:10 Urine Urobilinogen < 2.0 mg/dL (<2.0) 07/13/17 22:10 Ur Leukocyte Esterase Neg (Negative) 07/13/17 22:10 Urine WBC (Auto) < 1.0 /HPF (0.0-6.0) 07/13/17 22:10 Urine RBC (Auto) 4.0 /HPF (0.0-6.0) 07/13/17 22:10 U Epithel Cells (Auto) 1.0 /HPF (0-13.0) 07/13/17 22:10 Urine Bacteria (Auto) 1+ /HPF (Negative) 07/13/17 22:10
[2017-07-14] MEDS ORDERED: ACETAMINOPHEN PO PRN (09:37)
[2017-07-14] MEDS ORDERED: MOTRIN PO PRN (09:37)
[2017-07-14] MEDS ORDERED: BENADRYL PO PRN (09:37)
[2017-07-14] MEDS ORDERED: OXYCODONE HCL PO PRN (09:37)
[2017-07-14] MEDS ORDERED: PNEUMOVAX 23 IM ONE (09:42)
[2017-07-14] MEDS ORDERED: Fluarix Quad 2017-2018(36 MOS+ IM ONE (09:42)
[2017-07-14] MEDS ORDERED: CAFF PO SCH (09:45)
[2017-07-14] MEDS ORDERED: ACETAMIN PO SCH (09:45)
[2017-07-14] MEDS ORDERED: CODEINE PO SCH (09:45)
[2017-07-14] MEDS ORDERED: BUTALBIT PO SCH (09:45)
[2017-07-14] MEDS: COZAAR PO SCH (10:00)
[2017-07-14] MEDS ORDERED: NON-FORMULARY (Losartan [Cozaar] 100 MG) PO SCH (10:00)
[2017-07-14] MEDS: LASIX PO SCH (10:00)
[2017-07-14] MEDS ORDERED: ROXICODONE PO PRN (11:33)
[2017-07-14] MEDS: PERCOCET 5/325 PO PRN (12:20)
[2017-07-14] MEDS: LEVEMIR SUB-Q SCH (21:48)
[2017-07-14] MEDS ORDERED: INSULIN GLARGINE HUM REC ANLOG 60 UNIT SQ SCH (22:00)
[2017-07-15 04:18] LABS: Basophils % (Auto) 0.6 % (0.0-1.8); Eosinophils # (Auto) 0.1 K/mm3 (0.0-0.4); Eosinophils % (Auto) 2.5 % (0.0-4.3); Hematocrit 36.2 % (30.3-42.9); Hemoglobin 12.5 gm/dl (10.1-14.3); Lymphocytes # (Auto) 2.3 K/mm3 (1.2-5.4); Lymphocytes % (Auto) 47.1 % (13.4-35.0); Mean Corpuscular HGB Conc 34 % (30-34); Mean Corpuscular Hemoglobin 33 pg (28-32); Mean Corpuscular Volume 96 fl (79-97); Monocytes # (Auto) 0.4 K/mm3 (0.0-0.8); Monocytes % (Auto) 8.2 % (0.0-7.3); Platelet Count 284 K/mm3 (140-440); Red Blood Count 3.77 M/mm3 (3.65-5.03); Red Cell Distribution Width 15.3 % (13.2-15.2)
[2017-07-15 04:36] LABS: BUN/Creatinine Ratio 24; Blood Urea Nitrogen 17 mg/dL (7-17); Calcium 8.1 mg/dL (8.4-10.2); Hemolysis Index 17
[2017-07-15] MEDS: NOVOLOG SUB-Q SCH ×4 (08:45→23:36)
[2017-07-15] MEDS: NEURONTIN PO SCH ×3 (10:02→18:04)
[2017-07-15] MEDS: NORVASC PO SCH (10:03)
[2017-07-15] MEDS: CATAPRES PO SCH ×2 (10:03→22:22)
[2017-07-15] MEDS: LASIX PO SCH (10:03)
[2017-07-15] MEDS: FEOSOL PO SCH ×2 (10:04→22:19)
[2017-07-15] MEDS: CYMBALTA PO SCH (10:04)
[2017-07-15] MEDS: COZAAR PO SCH (10:04)
[2017-07-15] MEDS: MORPHINE IV PRN ×2 (10:05→18:03)
[2017-07-15] MEDS: LOVENOX SUB-Q SCH (10:05)
[2017-07-15] MEDS ORDERED: PROCARDIA XL PO SCH (12:00)
[2017-07-15] MEDS ORDERED: DILAUDID IV PRN (18:14)
[2017-07-15] MEDS: FLEXERIL PO PRN ×2 (18:14→22:16)
[2017-07-15] MEDS ORDERED: LYRICA 25 MG, LYRICA 75 MG PO SCH (22:00)
[2017-07-15] MEDS: PERCOCET 5/325 PO PRN (22:17)
[2017-07-15] MEDS: LYRICA PO SCH (22:22)
[2017-07-15] MEDS: LIORESAL PO SCH (22:23)
[2017-07-15] MEDS: LEVEMIR SUB-Q SCH (22:27)
[2017-07-16] MEDS: PERCOCET 5/325 PO PRN (07:48)
[2017-07-16] MEDS: LIORESAL PO SCH ×2 (08:28→13:30)
[2017-07-16] MEDS: NOVOLOG SUB-Q SCH ×3 (08:28→16:30)
[2017-07-16] MEDS ORDERED: PROCARDIA XL PO SCH (10:00)
[2017-07-16] MEDS ORDERED: K-DUR PO SCH (10:00)
[2017-07-16] MEDS: LOVENOX SUB-Q SCH (10:10)
[2017-07-16] MEDS: CYMBALTA PO SCH (10:10)
[2017-07-16] MEDS: FEOSOL PO SCH (10:10)
[2017-07-16] MEDS: LASIX PO SCH (10:11)
[2017-07-16] MEDS: COZAAR PO SCH (10:12)
[2017-07-16] MEDS: CATAPRES PO SCH (10:12)
[2017-07-16] MEDS: LYRICA PO SCH (10:34)
--- NOTE | 2017-07-16 11:50 | Discharge Summary ---
Providers - Providers Date of Admission: 07/14/17 03:55 Attending physician: NELI SCHUSTER MD 07/16/17 09:52 Physical Therapy Evaluation and Treat [CONS] Routine Comment: Reason For Exam: debility Primary care physician: CHINYERE BARGER Hospitalization Condition: Stable Hospital course: 47-year-old woman with a history of hypertension, diabetes, sciatica comes to emergency room with complaints of left thigh pain radiated to the left groin and upper buttock described as a spasm-like effect, intermediate every 30 minutes, intensity 9/10, relief at her home medications. She received pain medications, anti-spastic medications after which she clinically improved. She had a CT of her lower extremity and Dopplers of her lower extremities that were negative for any acute process or clots. Her blood pressure medications were optimized, she clinically improved and was subsequently discharged Discharge diagnoses Acute pain due to sciatica Left lower extremity swelling Diabetes type 2 Hypertensive urgency Hypokalemia Disposition: TO HOME OR SELFCARE Time spent for discharge: 33 minutes Core Measure Documentation - Palliative Care Palliative Care/ Comfort Measures: Not Applicable - Core Measures Any of the following diagnoses?: none Exam - Physical Exam Narrative exam: General.: Appears well, no distress, nontoxic HEENT: Moist mucous membranes, extraocular muscles intact, no lymphadenopathy Neck: supple Cardiac: S1-S2 heard Lungs: clear to auscultation bilaterally Abdomen: soft , nontender, nondistended, bowel sounds positive Extremities: Left lower extremity shows varicosities and pitting edema Skin: no rash or lesions Neurologic: no gross focal deficits Psych: appropriate behavior, appropriate mood, corporative, judgment intact - Constitutional Vitals: Temp Pulse Resp BP Pulse Ox 98.3 F 91 H 22 143/93 92 07/16/17 07:52 07/16/17 10:12 07/16/17 07:52 07/16/17 10:12 07/16/17 07:52 Plan Follow up with: CHINYERE BARGER MD [Primary Care Provider] - 3-5 Days Prescriptions: Baclofen [Lioresal] 10 mg PO TID #90 tablet Cyclobenzaprine [Flexeril 10 MG TAB] 10 mg PO BID PRN #30 tablet PRN Reason: Muscle Spasm diphenhydrAMINE [Benadryl CAP] 25 mg PO Q8HR PRN #60 capsule PRN Reason: Muscle Spasm Ferrous Sulfate [Feosol 325 MG tab] 325 mg PO BID #60 tablet HYDROmorphone [Dilaudid] 2 mg PO Q6HR #14 tablet Ibuprofen [Motrin 600 MG tab] 600 mg PO Q8H PRN #30 tablet PRN Reason: Pain NIFEdipine XL [Procardia Xl] 90 mg PO QDAY #30 tablet Potassium Chloride [K-Dur] 20 meq PO QDAY #10 tablet Pregabalin [Lyrica] 100 mg PO BID 30 Days capsule
[2017-07-16] MEDS ORDERED: DILAUDID PO PRN (11:52)
[2017-07-16 15:51] VITALS: BP 151/97
--- NOTE | 2017-07-20 09:53 | Vascular Lab Report ---
LOWER EXTREMITY VENOUS DUPLEX: REASON FOR EXAM: swelling of the lower extremities. COMMENTS ON THE RIGHT: All veins visualized are freely compressible without evidence of internal echogenicity. Flow is spontaneous and phasic throughout. COMMENTS ON THE LEFT: All veins visualized are freely compressible without evidence of internal echogenicity. Flow is spontaneous and phasic throughout. IMPRESSION: No evidence of acute or chronic deep venous thrombosis in either lower extremity.
== END 2017-07-16 17:50 | disposition home health service (06) | DRG 552 ==
LOC: ED 17:11 → 3A 07-14 03:55
PROVIDERS: ADMIT Internal Medicine; ATTEND Internal Medicine
PROC: 3E0234Z Introduction of Serum, Toxoid and Vaccine into Muscle, Percutaneous Approach (ICD-10-PCS; principal; 2017-07-14)
DX: M54.32 Sciatica, left side (principal); I16.0 Hypertensive urgency; I10 Essential (primary) hypertension; E87.6 Hypokalemia; E11.9 Type 2 diabetes mellitus without complications; I83.92 Asymptomatic varicose veins of left lower extremity; M19.90 Unspecified osteoarthritis, unspecified site; F17.210 Nicotine dependence, cigarettes, uncomplicated; Z79.899 Other long term (current) drug therapy; Z90.49 Acquired absence of other specified parts of digestive tract; Z90.710 Acquired absence of both cervix and uterus; Z23 Encounter for immunization
CPT/HCPCS: 36415; 71275; 74022; 74177; 80048; 80053; 81001; 82962; 83880; 84439; 84443; 85025; 85379; 90686; 90732; 93005; 93010; 93970; 96361; 96374; 96375; 96376; 99406; A9270-GY; J0360; J1170; J1650; J1815; J1818; J1885; J2270; J2405; J7030; Q9967

== ENCOUNTER 2017-10-02 21:11 | Emergency (ER) | payer MEDICARE ==
[2017-10-02 22:24] LABS: Basophils % (Auto) 0.6 % (0.0-1.8); Eosinophils # (Auto) 0.1 K/mm3 (0.0-0.4); Eosinophils % (Auto) 1.4 % (0.0-4.3); Hematocrit 39.4 % (30.3-42.9); Hemoglobin 13.2 gm/dl (10.1-14.3); Lymphocytes # (Auto) 2.2 K/mm3 (1.2-5.4); Mean Corpuscular HGB Conc 34 % (30-34); Mean Corpuscular Hemoglobin 31 pg (28-32); Mean Corpuscular Volume 93 fl (79-97); Monocytes # (Auto) 0.5 K/mm3 (0.0-0.8); Monocytes % (Auto) 6.7 % (0.0-7.3); Platelet Count 439 K/mm3 (140-440); Red Blood Count 4.22 M/mm3 (3.65-5.03); Red Cell Distribution Width 14.5 % (13.2-15.2)
[2017-10-02] MEDS ORDERED: ZOFRAN ODT ONE (22:27)
[2017-10-02] MEDS ORDERED: ZOFRAN ODT PO ONE (22:36)
[2017-10-02 22:42] LABS: BUN/Creatinine Ratio 23; Blood Urea Nitrogen 16 mg/dL (7-17); Hemolysis Index 0
--- NOTE | 2017-10-02 23:30 | XRay Report ---
FINAL REPORT PROCEDURE: XR CHEST ROUTINE 2V TECHNIQUE: PA and lateral chest radiographs were obtained. CPT 05358 HISTORY: Shortness of breath COMPARISON: No prior studies are available for comparison. FINDINGS: Heart: Normal. Mediastinum/Vessels: Normal. Lungs/Pleural space: Normal. Bony thorax: No acute osseous abnormality. Other: IMPRESSION: Normal examination.
[2017-10-03] MEDS ORDERED: NACL 0.9% 1000 ML 1,000 ML IV ONE (01:09)
[2017-10-03] MEDS ORDERED: NORCO 7.5/325 PO ONE (01:09)
[2017-10-03] MEDS ORDERED: ZOFRAN IV ONE (01:09)
[2017-10-03] MEDS ORDERED: NORMODYNE IV ONE ×2 (01:10→03:39)
--- NOTE | 2017-10-03 01:16 | Emergency Department Report ---
ED Shortness of Breath HPI - General Chief Complaint: Dyspnea/Respdistress Stated Complaint: N/V Time Seen by Provider: 10/03/17 01:01 Source: patient Mode of arrival: Ambulatory Limitations: No Limitations - History of Present Illness Initial Comments: Patient is a 47-year-old female who is presenting status post being diagnosed with PE 1 month ago. Patient was unconscious when she arrived at that time. Patient's states 3 days ago she started having nausea vomiting headaches. For the last days she's had some chest pressure and tightness intermittently in the midsternal area is not exertional. Patient states this is essentially shortness of breath or pain with deep breathing. Patient was urged to come to the Hospital Hospital because 2 days ago her INR was only 1.7. She is on Coumadin and was told this is subtherapeutic. Patient denies any cough diarrhea abdominal pain this time. Patient's blood pressure was noted to be high and she states she has been taking all of her blood pressure medicines. - Related Data Home Medications Medication Instructions Recorded Confirmed Last Taken Atorvastatin Calcium [Lipitor] 20 mg PO QHS 04/23/14 08/16/17 Unknown Butalbit/Acetamin/Caff/Codeine 1 each PO Q4H 04/23/14 08/16/17 Unknown [Fioricet/Codeine 36-300-84-30] Duloxetine HCl [Cymbalta] 60 mg PO DAILY 04/23/14 08/16/17 Unknown Losartan [Cozaar] 100 mg PO QDAY 04/23/14 08/16/17 Unknown Ranitidine HCl [Zantac] 300 mg PO QDAY 04/23/14 08/16/17 Unknown cloNIDine [Catapres] 0.2 mg PO BID 04/23/14 08/16/17 Unknown metFORMIN [Glucophage] 1,000 mg PO BID 04/23/14 08/16/17 Unknown Furosemide [Lasix] 20 mg PO DAILY 07/14/17 08/16/17 Unknown Insulin Glargine,Hum.rec.anlog 60 unit SQ QHS 07/14/17 08/16/17 Unknown [Lantus] Previous Rx's Medication Instructions Recorded Last Taken Type Baclofen [Lioresal] 10 mg PO TID #90 tablet 07/16/17 Unknown Rx Cyclobenzaprine [Flexeril 10 MG 10 mg PO BID PRN #30 tablet 07/16/17 Unknown Rx TAB] Ferrous Sulfate [Feosol 325 MG tab] 325 mg PO BID #60 tablet 07/16/17 Unknown Rx Ibuprofen [Motrin 600 MG tab] 600 mg PO Q8H PRN #30 tablet 07/16/17 Unknown Rx NIFEdipine XL [Procardia Xl] 90 mg PO QDAY #30 tablet 07/16/17 Unknown Rx Potassium Chloride [K-Dur] 20 meq PO QDAY #10 tablet 07/16/17 Unknown Rx Pregabalin [Lyrica] 100 mg PO BID 30 Days capsule 07/16/17 Unknown Rx diphenhydrAMINE [Benadryl CAP] 25 mg PO Q8HR PRN #60 capsule 07/16/17 Unknown Rx Fluticasone [Flonase] 100 mcg NS QDAY #1 bottle 08/31/17 Unknown Rx Oxycodone HCl/Acetaminophen 1 each PO Q6HR PRN #12 tablet 08/31/17 Unknown Rx [Percocet 10/325 mg] Warfarin [Coumadin] 15 mg PO DAILY@1700 #60 tablet 08/31/17 Unknown Rx Apixaban [Eliquis] 5 mg PO BID 30 Days tablet 10/03/17 Unknown Rx Doxycycline [Vibramycin CAP] 100 mg PO Q12HR #14 capsule 10/03/17 Unknown Rx HYDROcodone/APAP 5-325 [[place] 1 each PO Q4HR PRN #12 tablet 10/03/17 Unknown Rx 5/325] Ondansetron [Zofran Odt] 4 mg PO Q8HR PRN #12 tab.rapdis 10/03/17 Unknown Rx Allergies Allergy/AdvReac Type Severity Reaction Status Date / Time No Known Allergies Allergy Verified 10/06/16 01:59 ED Review of Systems ROS: Stated complaint: N/V Other details as noted in HPI Comment: All other systems reviewed and negative ED Past Medical Hx - Past Medical History Previous Medical History?: Yes Hx Hypertension: Yes Hx Congestive Heart Failure: No Hx Diabetes: Yes Hx Arthritis: Yes (Chronic back, Siatica, and knee pain) Hx Headaches / Migraines: Yes (Migraines) Hx Asthma: No Hx COPD: No Additional medical history: Sciatica. Chronic back/knee pain - Surgical History Hx Cholecystectomy: Yes Hx Breast Surgery: Yes (BREAST REDUCTION) Additional Surgical History: R knee surgery. breast reduction - hysterectomy. carpel tunnel repair R side - Social History Smoking Status: Current Every Day Smoker Substance Use Type: None - Medications Home Medications: Home Medications Medication Instructions Recorded Confirmed Last Taken Type Atorvastatin Calcium [Lipitor] 20 mg PO QHS 04/23/14 08/16/17 Unknown History Butalbit/Acetamin/Caff/Codeine 1 each PO Q4H 04/23/14 08/16/17 Unknown History [Fioricet/Codeine 28-780-98-30] Duloxetine HCl [Cymbalta] 60 mg PO DAILY 04/23/14 08/16/17 Unknown History Losartan [Cozaar] 100 mg PO QDAY 04/23/14 08/16/17 Unknown History Ranitidine HCl [Zantac] 300 mg PO QDAY 04/23/14 08/16/17 Unknown History cloNIDine [Catapres] 0.2 mg PO BID 04/23/14 08/16/17 Unknown History metFORMIN [Glucophage] 1,000 mg PO BID 04/23/14 08/16/17 Unknown History Furosemide [Lasix] 20 mg PO DAILY 07/14/17 08/16/17 Unknown History Insulin Glargine,Hum.rec.anlog 60 unit SQ QHS 07/14/17 08/16/17 Unknown History [Lantus] Baclofen [Lioresal] 10 mg PO TID #90 tablet 07/16/17 08/16/17 Unknown Rx Cyclobenzaprine [Flexeril 10 MG 10 mg PO BID PRN #30 tablet 07/16/17 08/16/17 Unknown Rx TAB] Ferrous Sulfate [Feosol 325 MG tab] 325 mg PO BID #60 tablet 07/16/17 08/16/17 Unknown Rx Ibuprofen [Motrin 600 MG tab] 600 mg PO Q8H PRN #30 tablet 07/16/17 08/16/17 Unknown Rx NIFEdipine XL [Procardia Xl] 90 mg PO QDAY #30 tablet 07/16/17 08/16/17 Unknown Rx Potassium Chloride [K-Dur] 20 meq PO QDAY #10 tablet 07/16/17 08/16/17 Unknown Rx Pregabalin [Lyrica] 100 mg PO BID 30 Days capsule 07/16/17 08/16/17 Unknown Rx diphenhydrAMINE [Benadryl CAP] 25 mg PO Q8HR PRN #60 capsule 07/16/17 08/16/17 Unknown Rx Fluticasone [Flonase] 100 mcg NS QDAY #1 bottle 08/31/17 Unknown Rx Oxycodone HCl/Acetaminophen 1 each PO Q6HR PRN #12 tablet 08/31/17 Unknown Rx [Percocet 10/325 mg] Warfarin [Coumadin] 15 mg PO DAILY@1700 #60 tablet 08/31/17 Unknown Rx Apixaban [Eliquis] 5 mg PO BID 30 Days tablet 10/03/17 Unknown Rx Doxycycline [Vibramycin CAP] 100 mg PO Q12HR #14 capsule 10/03/17 Unknown Rx HYDROcodone/APAP 5-325 [[place] 1 each PO Q4HR PRN #12 tablet 10/03/17 Unknown Rx 5/325] Ondansetron [Zofran Odt] 4 mg PO Q8HR PRN #12 tab.rapdis 10/03/17 Unknown Rx ED Physical Exam - General Limitations: No Limitations General appearance: alert, in no apparent distress, anxious - Head Head exam: Present: atraumatic, normocephalic - Eye Eye exam: Present: normal appearance - ENT ENT exam: Present: mucous membranes moist - Neck Neck exam: Present: normal inspection - Respiratory Respiratory exam: Present: normal lung sounds bilaterally. Absent: respiratory distress, wheezes, rales, rhonchi - Cardiovascular Cardiovascular Exam: Present: normal rhythm, tachycardia. Absent: systolic murmur, diastolic murmur, rubs, gallop - GI/Abdominal GI/Abdominal exam: Present: soft, normal bowel sounds. Absent: distended, tenderness, guarding, rebound - Extremities Exam Extremities exam: Present: normal inspection - Back Exam Back exam: Present: normal inspection - Neurological Exam Neurological exam: Present: alert, oriented X3 - Psychiatric Psychiatric exam: Present: normal affect, normal mood - Skin Skin exam: Present: warm, dry, intact, normal color. Absent: rash ED Course Vital Signs 10/02/17 10/03/17 10/03/17 21:34 02:08 02:25 Temperature 99 F Pulse Rate 101 H 86 Respiratory 22 18 20 Rate Blood Pressure 210/122 192/105 Blood Pressure 192/105 [Left] O2 Sat by Pulse 99 97 Oximetry 10/03/17 10/03/17 04:07 04:19 Temperature Pulse Rate 81 84 Respiratory 18 18 Rate Blood Pressure 176/108 Blood Pressure 176/108 134/85 [Left] O2 Sat by Pulse 98 98 Oximetry ED Medical Decision Making - Lab Data Result diagrams: 10/02/17 22:15 10/02/17 22:15 - EKG Data -: EKG Interpreted by Me - EKG Data Interpretation: other (patient has a sinus rhythm with a rate of 90 normal axis normal intervals there's no ST segment elevations or depressions time of interpretation is ) - Radiology Data Radiology results: report reviewed CTA of the chest shows no evidence for pulmonary embolus or pneumonia - Medical Decision Making Patient's CT of the chest shows no PE and no infiltrates. Blood pressure decreased to 160 systolic range. Patient's nausea and vomiting was controlled. Patient most likely has this upper respiratory infection. I was concerned that her INR was still low and we'll switch the patient's L Oquist. Patient will be discharged home at this time. Critical care attestation.: If time is entered above; I have spent that time in minutes in the direct care of this critically ill patient, excluding procedure time. ED Disposition Clinical Impression: Subtherapeutic international normalized ratio (INR) Upper respiratory infection Qualifiers: URI type: unspecified URI Qualified Code(s): J06.9 - Acute upper respiratory infection, unspecified Disposition: DC-01 TO HOME OR SELFCARE Is pt being admited?: No Does the pt Need Aspirin: No Condition: Stable Instructions: Upper Respiratory Infection (ED) Prescriptions: Apixaban [Eliquis] 5 mg PO BID 30 Days tablet Doxycycline [Vibramycin CAP] 100 mg PO Q12HR #14 capsule HYDROcodone/APAP 5-325 [[place] 5/325] 1 each PO Q4HR PRN #12 tablet PRN Reason: Pain Ondansetron [Zofran Odt] 4 mg PO Q8HR PRN #12 tab.rapdis PRN Reason: Nausea Referrals: CHINYERE BARGER MD [Primary Care Provider] - 3-5 Days
[2017-10-03 02:05] LABS: INR 1.29 (0.87-1.13)
[2017-10-03 02:06] LABS: Partial Thromboplastin Time 32.6 Sec. (24.2-36.6)
--- NOTE | 2017-10-03 02:55 | Cat Scan Report ---
FINAL REPORT PROCEDURE: CT ANGIO CHEST TECHNIQUE: Computerized axial tomographic angiography of the chest and pulmonary arteries was performed after the IV injection of iodinated nonionic contrast. The image data was postprocessed using maximum intensity projection (MIP) and 2-dimensional multiplanar reformatted (MPR) techniques. The examination is specifically tailored to the evaluation of the pulmonary arteries per clinical request. HISTORY: Short of breath 786.09, chest pain 786.50, cp, sob subther inr for recent PE COMPARISON: No prior studies are available for comparison. FINDINGS: Heart and pericardium: Normal. Thoracic aorta: Normal. Pulmonary vasculature: Normal. No pulmonary emboli. Lymph nodes: No enlarged thoracic lymph nodes. Lungs: There is atelectasis at the lung bases. There are no active infiltrates.. Pleural space: No effusion, thickening, or pneumothorax. Musculoskeletal structures: No significant abnormality. Upper abdominal structures: No significant abnormality. IMPRESSION: There is no pulmonary embolism. There is no thoracic aortic aneurysm or dissection. There is no acute lung disease..
[2017-10-03] MEDS ORDERED: MORPHINE IV ONE (03:38)
[2017-10-03] MEDS ORDERED: REGLAN IV ONE (03:39)
[2017-10-03 04:20] VITALS: BP 134/85
== END 2017-10-03 06:36 | disposition home or self-care (01) ==
LOC: ED 21:11
DX: J06.9 Acute upper respiratory infection, unspecified (principal); R79.1 Abnormal coagulation profile; R11.2 Nausea with vomiting, unspecified; I10 Essential (primary) hypertension; E11.9 Type 2 diabetes mellitus without complications; G89.29 Other chronic pain; G43.909 Migraine, unspecified, not intractable, without status migrainosus; F17.200 Nicotine dependence, unspecified, uncomplicated; Z90.49 Acquired absence of other specified parts of digestive tract; Z90.710 Acquired absence of both cervix and uterus
CPT/HCPCS: 36415; 71046; 71275; 80048; 84484; 85025; 85610; 85730; 93005; 93010; 96361; 96374; 96375; 96376; 99284; J2270; J2405; J2765; J7030; Q9967; Q0162

== ENCOUNTER 2019-03-10 23:08 | Emergency (ER) | payer MEDICARE ==
--- NOTE | 2019-03-11 01:30 | Emergency Department Report ---
- General Chief complaint: Skin/Abscess/Foreign Body Stated complaint: LUMP ON CHEST/PAIN UNDER LEFT ARM Time Seen by Provider: 03/11/19 01:24 Source: patient Mode of arrival: Ambulatory Limitations: No Limitations - History of Present Illness Initial comments: 49-year-old -[place] female presents to the emergency room for a lump mid chest for 3 days and a lump under her left underarm 1 week. Patient reports that she had a piercing in the middle of her chest and has taken it out now has swelling redness and purulent discharge. Patient reports that the left axillary has a lump but does not have any redness or swelling. Patient denies any fever chills no nausea no vomiting. MD complaint: abscess/boil Onset/Timin -: week(s) Tetanus Up to Date: unsure Location: chest Severity scale (0 -10): 7 Quality: sharp Consistency: constant Context: none Associated symptoms: denies other symptoms Treatments Prior to Arrival: none - Related Data Home Medications Medication Instructions Recorded Confirmed Last Taken Atorvastatin Calcium [Lipitor] 20 mg PO QHS 04/23/14 08/16/17 Unknown Butalbit/Acetamin/Caff/Codeine 1 each PO Q4H 04/23/14 08/16/17 Unknown [Fioricet/Codeine 33-172-27-30] Duloxetine HCl [Cymbalta] 60 mg PO DAILY 04/23/14 08/16/17 Unknown Losartan [Cozaar] 100 mg PO QDAY 04/23/14 08/16/17 Unknown Ranitidine HCl [Zantac] 300 mg PO QDAY 04/23/14 08/16/17 Unknown cloNIDine [Catapres] 0.2 mg PO BID 04/23/14 08/16/17 Unknown metFORMIN [Glucophage] 1,000 mg PO BID 04/23/14 08/16/17 Unknown Furosemide [Lasix] 20 mg PO DAILY 07/14/17 08/16/17 Unknown Insulin Glargine,Hum.rec.anlog 60 unit SQ QHS 07/14/17 08/16/17 Unknown [Lantus] Previous Rx's Medication Instructions Recorded Last Taken Type Baclofen [Lioresal] 10 mg PO TID #90 tablet 07/16/17 Unknown Rx Cyclobenzaprine [Flexeril 10 MG 10 mg PO BID PRN #30 tablet 07/16/17 Unknown Rx TAB] Ferrous Sulfate [Feosol 325 MG tab] 325 mg PO BID #60 tablet 07/16/17 Unknown Rx NIFEdipine XL [Procardia Xl] 90 mg PO QDAY #30 tablet 07/16/17 Unknown Rx Potassium Chloride [K-Dur] 20 meq PO QDAY #10 tablet 07/16/17 Unknown Rx Pregabalin [Lyrica] 100 mg PO BID 30 Days capsule 07/16/17 Unknown Rx diphenhydrAMINE [Benadryl CAP] 25 mg PO Q8HR PRN #60 capsule 07/16/17 Unknown Rx Fluticasone [Flonase] 100 mcg NS QDAY #1 bottle 08/31/17 Unknown Rx Oxycodone HCl/Acetaminophen 1 each PO Q6HR PRN #12 tablet 08/31/17 Unknown Rx [Percocet 10/325 mg] Warfarin [Coumadin] 15 mg PO DAILY@1700 #60 tablet 08/31/17 Unknown Rx Apixaban [Eliquis] 5 mg PO BID 30 Days tablet 10/03/17 Unknown Rx DOXYCYCLINE Hyclate [Vibramycin 100 mg PO Q12HR #14 capsule 10/03/17 Unknown Rx CAP] HYDROcodone/APAP 5-325 [[place] 1 each PO Q4HR PRN #12 tablet 10/03/17 Unknown Rx 5/325] Ondansetron [Zofran Odt] 4 mg PO Q8HR PRN #12 tab.rapdis 10/03/17 Unknown Rx Ibuprofen [Motrin 600 MG tab] 600 mg PO Q8H PRN #30 tablet 03/11/19 Unknown Rx cephALEXin [Keflex] 500 mg PO Q8HR #30 cap 03/11/19 Unknown Rx Allergies Allergy/AdvReac Type Severity Reaction Status Date / Time No Known Allergies Allergy Verified 10/06/16 01:59 Abscess Boil HPI - HPI Chief Complaint: Skin/Abscess/Foreign Body Stated Complaint: LUMP ON CHEST/PAIN UNDER LEFT ARM Time Seen by Provider: 03/11/19 01:24 Home Medications: Home Medications Medication Instructions Recorded Confirmed Last Taken Atorvastatin Calcium [Lipitor] 20 mg PO QHS 04/23/14 08/16/17 Unknown Butalbit/Acetamin/Caff/Codeine 1 each PO Q4H 04/23/14 08/16/17 Unknown [Fioricet/Codeine [id number]] Duloxetine HCl [Cymbalta] 60 mg PO DAILY 04/23/14 08/16/17 Unknown Losartan [Cozaar] 100 mg PO QDAY 04/23/14 08/16/17 Unknown Ranitidine HCl [Zantac] 300 mg PO QDAY 04/23/14 08/16/17 Unknown cloNIDine [Catapres] 0.2 mg PO BID 04/23/14 08/16/17 Unknown metFORMIN [Glucophage] 1,000 mg PO BID 04/23/14 08/16/17 Unknown Furosemide [Lasix] 20 mg PO DAILY 07/14/17 08/16/17 Unknown Insulin Glargine,Hum.rec.anlog 60 unit SQ QHS 07/14/17 08/16/17 Unknown [Lantus] Previous Rx's Medication Instructions Recorded Last Taken Type Baclofen [Lioresal] 10 mg PO TID #90 tablet 07/16/17 Unknown Rx Cyclobenzaprine [Flexeril 10 MG 10 mg PO BID PRN #30 tablet 07/16/17 Unknown Rx TAB] Ferrous Sulfate [Feosol 325 MG tab] 325 mg PO BID #60 tablet 07/16/17 Unknown Rx NIFEdipine XL [Procardia Xl] 90 mg PO QDAY #30 tablet 07/16/17 Unknown Rx Potassium Chloride [K-Dur] 20 meq PO QDAY #10 tablet 07/16/17 Unknown Rx Pregabalin [Lyrica] 100 mg PO BID 30 Days capsule 07/16/17 Unknown Rx diphenhydrAMINE [Benadryl CAP] 25 mg PO Q8HR PRN #60 capsule 07/16/17 Unknown Rx Fluticasone [Flonase] 100 mcg NS QDAY #1 bottle 08/31/17 Unknown Rx Oxycodone HCl/Acetaminophen 1 each PO Q6HR PRN #12 tablet 08/31/17 Unknown Rx [Percocet 10/325 mg] Warfarin [Coumadin] 15 mg PO DAILY@1700 #60 tablet 08/31/17 Unknown Rx Apixaban [Eliquis] 5 mg PO BID 30 Days tablet 10/03/17 Unknown Rx DOXYCYCLINE Hyclate [Vibramycin 100 mg PO Q12HR #14 capsule 10/03/17 Unknown Rx CAP] HYDROcodone/APAP 5-325 [[place] 1 each PO Q4HR PRN #12 tablet 10/03/17 Unknown Rx 5/325] Ondansetron [Zofran Odt] 4 mg PO Q8HR PRN #12 tab.rapdis 10/03/17 Unknown Rx Ibuprofen [Motrin 600 MG tab] 600 mg PO Q8H PRN #30 tablet 03/11/19 Unknown Rx cephALEXin [Keflex] 500 mg PO Q8HR #30 cap 03/11/19 Unknown Rx Allergies/Adverse Reactions: Allergies Allergy/AdvReac Type Severity Reaction Status Date / Time No Known Allergies Allergy Verified 10/06/16 01:59 ED Review of Systems ROS: Stated complaint: LUMP ON CHEST/PAIN UNDER LEFT ARM Other details as noted in HPI Comment: All other systems reviewed and negative Skin: lesions ED Past Medical Hx - Past Medical History Previous Medical History?: Yes Hx Hypertension: Yes Hx Congestive Heart Failure: No Hx Diabetes: Yes Hx Arthritis: Yes (Chronic back, Siatica, and knee pain) Hx Headaches / Migraines: Yes (Migraines) Hx Asthma: No Hx COPD: No Additional medical history: Sciatica. Chronic back/knee pain - Surgical History Past Surgical History?: Yes Hx Cholecystectomy: Yes Hx Breast Surgery: Yes (BREAST REDUCTION) Additional Surgical History: R knee surgery. breast reduction - hysterectomy. carpel tunnel repair R side - Social History Smoking Status: Current Every Day Smoker Substance Use Type: None - Medications Home Medications: Home Medications Medication Instructions Recorded Confirmed Last Taken Type Atorvastatin Calcium [Lipitor] 20 mg PO QHS 04/23/14 08/16/17 Unknown History Butalbit/Acetamin/Caff/Codeine 1 each PO Q4H 04/23/14 08/16/17 Unknown History [Fioricet/Codeine 26-370-49-30] Duloxetine HCl [Cymbalta] 60 mg PO DAILY 04/23/14 08/16/17 Unknown History Losartan [Cozaar] 100 mg PO QDAY 04/23/14 08/16/17 Unknown History Ranitidine HCl [Zantac] 300 mg PO QDAY 04/23/14 08/16/17 Unknown History cloNIDine [Catapres] 0.2 mg PO BID 04/23/14 08/16/17 Unknown History metFORMIN [Glucophage] 1,000 mg PO BID 04/23/14 08/16/17 Unknown History Furosemide [Lasix] 20 mg PO DAILY 07/14/17 08/16/17 Unknown History Insulin Glargine,Hum.rec.anlog 60 unit SQ QHS 07/14/17 08/16/17 Unknown History [Lantus] Baclofen [Lioresal] 10 mg PO TID #90 tablet 07/16/17 08/16/17 Unknown Rx Cyclobenzaprine [Flexeril 10 MG 10 mg PO BID PRN #30 tablet 07/16/17 08/16/17 Unknown Rx TAB] Ferrous Sulfate [Feosol 325 MG tab] 325 mg PO BID #60 tablet 07/16/17 08/16/17 Unknown Rx NIFEdipine XL [Procardia Xl] 90 mg PO QDAY #30 tablet 07/16/17 08/16/17 Unknown Rx Potassium Chloride [K-Dur] 20 meq PO QDAY #10 tablet 07/16/17 08/16/17 Unknown Rx Pregabalin [Lyrica] 100 mg PO BID 30 Days capsule 07/16/17 08/16/17 Unknown Rx diphenhydrAMINE [Benadryl CAP] 25 mg PO Q8HR PRN #60 capsule 07/16/17 08/16/17 Unknown Rx Fluticasone [Flonase] 100 mcg NS QDAY #1 bottle 08/31/17 Unknown Rx Oxycodone HCl/Acetaminophen 1 each PO Q6HR PRN #12 tablet 08/31/17 Unknown Rx [Percocet 10/325 mg] Warfarin [Coumadin] 15 mg PO DAILY@1700 #60 tablet 08/31/17 Unknown Rx Apixaban [Eliquis] 5 mg PO BID 30 Days tablet 10/03/17 Unknown Rx DOXYCYCLINE Hyclate [Vibramycin 100 mg PO Q12HR #14 capsule 10/03/17 Unknown Rx CAP] HYDROcodone/APAP 5-325 [[place] 1 each PO Q4HR PRN #12 tablet 10/03/17 Unknown Rx 5/325] Ondansetron [Zofran Odt] 4 mg PO Q8HR PRN #12 tab.rapdis 10/03/17 Unknown Rx Ibuprofen [Motrin 600 MG tab] 600 mg PO Q8H PRN #30 tablet 03/11/19 Unknown Rx cephALEXin [Keflex] 500 mg PO Q8HR #30 cap 03/11/19 Unknown Rx ED Physical Exam - General Limitations: No Limitations General appearance: alert, in no apparent distress - Head Head exam: Present: atraumatic, normocephalic - Eye Eye exam: Present: normal appearance - ENT ENT exam: Present: mucous membranes moist - Respiratory Respiratory exam: Present: normal lung sounds bilaterally. Absent: respiratory distress - Cardiovascular Cardiovascular Exam: Present: regular rate, normal rhythm. Absent: systolic murmur, diastolic murmur, rubs, gallop - Extremities Exam Extremities exam: Present: normal inspection, full ROM - Back Exam Back exam: Present: normal inspection - Neurological Exam Neurological exam: Present: alert, oriented X3, normal gait - Expanded Skin Exam Expanded Distribution of rash: chest Description of rash: Present: tenderness, erythematous, swelling ED Course Vital Signs 03/10/19 23:14 Temperature 98.5 F Pulse Rate 100 H Respiratory 18 Rate Blood Pressure 137/83 O2 Sat by Pulse 100 Oximetry ED Medical Decision Making - Medical Decision Making 49-year-old -[place] female presents to the emergency room for a lump mid chest for 3 days and a lump under her left underarm 1 week. Patient reports that she had a piercing in the middle of her chest and has taken it out now has swelling redness and purulent discharge. Patient reports that the left axillary has a lump but does not have any redness or swelling. Patient denies any fever chills no nausea no vomiting. Patient be treated for cellulitis. Patient be placed on Keflex 500 mg by mouth 3 times a day for 10 days. Patient is to take ibuprofen or Tylenol as needed for pain management. Patient is to follow-up with her primary care provider if her symptoms persist or gets worse. Critical care attestation.: If time is entered above; I have spent that time in minutes in the direct care of this critically ill patient, excluding procedure time. ED Disposition Clinical Impression: Cellulitis of skin Disposition: [id number] TO HOME OR SELFCARE Is pt being admited?: No Does the pt Need Aspirin: No Condition: Stable Instructions: Cellulitis (ED) Additional Instructions: Please complete antibiotics as prescribed. Pain medication as needed. Follow- up with your primary care provider if his symptoms persist or gets worse. Prescriptions: cephALEXin [Keflex] 500 mg PO Q8HR #30 cap Ibuprofen [Motrin 600 MG tab] 600 mg PO Q8H PRN #30 tablet PRN Reason: Pain Forms: Work/School Release Form(ED)
[2019-03-11 02:37] VITALS: BP 134/72
== END 2019-03-11 01:49 | disposition home or self-care (01) ==
LOC: ED 23:08
DX: L03.313 Cellulitis of chest wall (principal); L03.114 Cellulitis of left upper limb; I10 Essential (primary) hypertension; E11.9 Type 2 diabetes mellitus without complications; G43.909 Migraine, unspecified, not intractable, without status migrainosus; M54.9 Dorsalgia, unspecified; G89.29 Other chronic pain; F17.200 Nicotine dependence, unspecified, uncomplicated; Z90.49 Acquired absence of other specified parts of digestive tract; Z90.710 Acquired absence of both cervix and uterus; Z98.890 Other specified postprocedural states; Z79.4 Long term (current) use of insulin; Z79.84 Long term (current) use of oral hypoglycemic drugs; Z79.899 Other long term (current) drug therapy
CPT/HCPCS: 99282